=== PATIENT | male | born 1940 | race Caucasian/White ===

== ENCOUNTER 2019-09-14 15:25 | Emergency (ER) | payer BC, OTHER ==
[~2019-09-14] VITALS: Ht 188 cm; Wt 95.3 kg
--- NOTE | 2019-09-14 15:31 | NUR ---
[id number], HEAD LAC S/P TRIPPED AND FALL WHILE WALKING, HIT HEAD ON GROUND. -KO. PT AAOX4, VSS. RR EVEN & UNLABORED. DENIES CP, SOB, DIZZINESS, N/V, WEAKNESS @ THIS TIME. AWAITING EVAL BY KARELY/PA. WILL CONT TO MONITOR.
[2019-09-14] MEDS ORDERED: LET SOLN TOPICAL 8 ML UDC TP ONE ×2 (16:00→16:09)
--- NOTE | 2019-09-14 17:45 | NUR ---
Patient discharged to home in stable condition. Written and verbal after care instructions given. Patient verbalizes understanding of instruction.
[2019-09-14 17:46] VITALS: BP 128/78
== END 2019-09-14 17:50 | disposition home or self-care (01) ==
LOC: ER 15:27
DX: S01.01XA Laceration without foreign body of scalp, initial encounter (principal); I10 Essential (primary) hypertension; E11.9 Type 2 diabetes mellitus without complications; Z95.818 Presence of other cardiac implants and grafts; W01.0XXA Fall on same level from slipping, tripping and stumbling without subsequent striking against object, initial encounter; Y93.01 Activity, walking, marching and hiking; Y92.89 Other specified places as the place of occurrence of the external cause; Y99.8 Other external cause status
CPT/HCPCS: 12001; 70450; 99284; A6403